=== PATIENT | male | born 1990 | race African-American/Black ===

== ENCOUNTER 2020-08-21 13:17 | Emergency (ER) | payer OTHER ==
[2020-08-21 13:24] VITALS: BP 112/91; PULSE 77; TEMP 98.6; BMI 25.7
== END 2020-08-21 14:32 | disposition home or self-care (01) ==
LOC: JERFT 13:17
DX: Z48.02 Encounter for removal of sutures (principal)
CPT/HCPCS: 99281-25

== ENCOUNTER 2020-08-26 16:08 | Emergency (ER) | payer OTHER ==
[2020-08-26 16:18] VITALS: BP 151/71; PULSE 82; TEMP 98.3; BMI 25.7
== END 2020-08-26 17:15 | disposition home or self-care (01) ==
LOC: JERFT 16:08
DX: Z48.02 Encounter for removal of sutures (principal)
CPT/HCPCS: 99281-25